=== PATIENT | male | born 1935 | race Caucasian/White ===

== ENCOUNTER → 2016-04-12 | Outpatient (CLI) | payer OTHER | LOC: FIMAGING 09:06 | PROVIDERS: ATTEND Specialist | DX: N20.0 Calculus of kidney (principal) ==

== ENCOUNTER → 2016-08-02 | Outpatient (CLI) | payer OTHER | LOC: BRMIMAGING 13:25 | PROVIDERS: ATTEND Internal Medicine Rheumatology | DX: M81.0 Age-related osteoporosis without current pathological fracture (principal) ==

== ENCOUNTER 2016-08-14 08:49 | Emergency (ER) | payer OTHER ==
[2016-08-14 08:58] VITALS: PULSE 70
--- NOTE | 2016-08-14 09:44 | EDPHY ---
H & P Stated Complaint: r ankle/heel pain post walking golf course HPI/ROS: CHIEF COMPLAINT: Right ankle pain HISTORY OF PRESENT ILLNESS: The patient is an 81 y/o male complaining of right ankle pain worsening since after play golf. 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 He also has a history of gout for which he takes 300mg allopurinol daily. He hasn't had a flare in a long time. On , 3 days ago, he walked 9 holes while playing golf, but did not have any specific injury. He had some ankle soreness after golfing, but was able to walk without issue. Since then his pain has worsened and he developed swelling and redness around his right ankle, laterally. He denies fever, abdominal pain, vomiting, diarrhea, chest pain, shortness of breath, or other recent illness. REVIEW OF SYSTEMS: A ten point review of systems was performed and is negative with the exception of the items mentioned in the HPI. - Personal History Current Tetanus/Diphtheria Vaccine: Yes Tetanus Vaccine Date: 11/22/11 - Medical/Surgical History PMH: 1. Crohn's, in remission 2. Colon CA, colon resection 2012 3. Hypertension 4. Right calcaneal fracture with surgical repair 12 years ago, now has osteoarthritis at that site. 5. Osteoporosis 6. Gout - allopurinol, no recent flares 7. Renal insufficiency 8. Ureterolithiasis Hx Asthma: No Hx Chronic Respiratory Disease: No Hx Diabetes: No Hx Cardiac Disease: No Hx Renal Disease: Yes Hx Cirrhosis: No Hx Alcoholism: No Hx HIV/AIDS: No Hx Splenectomy or Spleen Trauma: No - Social History Smoking Status: Former smoker Additional Social History: at bedside. Retired. PCP: Dr. Stevens. - Physical Exam Exam: General Appearance: Alert. Vital signs reviewed. BP 148/70/ Respiratory: Lungs are clear to auscultation; no wheezes, rales, or rhonchi. Cardiovascular: Regular rate and rhythm; no murmur, rub, or gallop. Gastrointestinal: Abdomen is soft and nontender, no masses or organomegaly, bowel sounds normal. Skin: Warm and dry, no rashes on exposed skin, normal color. Back: Nontender to palpation over the thoracolumbar spine. No CVAT. Extremities: Right ankle is warm, erythematous, tender, and swollen over lateral malleolus, no streaking. FAROM right ankle. Other extremities/joints are unremarkable. Pulses: 2+ bilateral DP. Neurological: Alert and oriented. Moving all four extremities easily and equally. Sensation intact to light touch over RLE. Psychiatric: Normal affect. Constitutional: Initial Vital Signs Temperature (C) 36.5 C 08/14/16 08:55 Heart Rate 70 08/14/16 08:55 Respiratory Rate 16 08/14/16 08:55 Blood Pressure 148/70 H 08/14/16 08:55 O2 Sat (%) 96 08/14/16 08:55 O2 Delivery Mode Room Air Allergies/Adverse Reactions: amoxicillin [Amoxicillin] Allergy (Intermediate, Verified 08/14/16 08:53) Diarrhea Home Medications: Medication Instructions Recorded Allopurinol [Allopurinol 300 MG 300 mg PO DAILY18 07/14/12 (RX)] Aspirin EC [Aspirin EC 81 mg (OTC)] 81 mg PO DAILY 07/14/12 Calcium Acetate [Phoslo (RX)] 2,001 mg PO TIDMEAL 07/14/12 Cyanocobalamin (Vitamin B-12) 1,000 mcg IM Q30D 07/14/12 [Cobal-1000] Enalapril Maleate [Vasotec 10 MG 5 mg PO DAILY 07/14/12 (RX)] Loperamide HCl [Imodium 2 mg (OTC)] 4 mg PO QID 07/14/12 Omeprazole 40 mg PO DAILY18 07/14/12 Potassium Citrate [Urocit-K 10meq 20 meq PO BIDMEAL 07/14/12 (RX)] Psyllium Husk/Ca Carbonate 4 - 5 each PO DAILY 07/14/12 [Metamucil Plus Calcium Capsule] Terazosin HCl [Hytrin] 5 mg PO HS 07/14/12 amLODIPine BESYLATE [Norvasc 5 mg 5 mg PO 07/14/12 (RX)] Potassium Citrate [Urocit-K 10meq 10 meq PO DAILY@1200 07/15/12 (RX)] Bimatoprost 0.01% [Lumigan 0.01% 1 drop EACHEYE HS 11/16/12 (RX)] Vitamin D3 04/09/14 Welchol 08/14/16 predniSONE 20 mg PO DAILY #30 08/14/16 Medical Decision Making - Diagnostics Imaging: Discussed imaging studies w/ geological scout Radiologist, I viewed and interpreted images myself Procedures: Using sterile technique with lidocaine injection for local numbing, right ankle joint aspiration attempted by TAY Spicer and also by myself. No fluid obtained. ED Course/Re-evaluation: Presentation is likely related to gout. Plan for ankle x-ray and arthrocentesis of ankle joint. I have reviewed the ankle xray and the radiologist's report. There is atherosclerosis and a possible luytic process of the calcaneus (possibly related to his previous injury/surgery?). Nothing to explain recent swelling and pain. Ankle aspiration attempted by both TAY Cramer and myself--no fluid obtained. Patient tolerated well. 1200: Consulted with nephrology as patient has history of renal insufficiency-- not a good candidate for NSAIDS to treat gout. [employer] automation qa lead agrees with prednisone in this setting. I discussed this recommendation with the patient and wrote RX for him. We discussed prednisone taper once symptoms are controlled. He understands he should follow up with Dr. Granger in a few days. Reviewed danger signs that should prompt re-evaluation. Given history and exam, gout or pseudogout most likely diagnoses. Single joint is involved. No history of ankylosing spondylitis or RA. There is no known trauma and xray does not show signs of trauma--no fracture, dislocation, STS swelling. I doubt joint infection but can not entirely rule this out without fluid analysis. Departure - Departure Disposition: Home, Routine, Self-Care Clinical Impression: Gout Qualifiers: Gout site: ankle Gout etiology: idiopathic Chronicity: acute Laterality: right Qualified Code(s): M10.071 - Idiopathic gout, right ankle and foot Condition: Good Instructions: Gout (ED) Additional Instructions: Take 20mg prednisone twice daily until your flare has improved. Then taper down by dropping your daily dose by 10mg every 2 days until you get to 0mg. Follow up with Dr. Granger this week. Return to the ED for any worsening of condition. Referrals: Raymundo Stevens MD [Primary Care Provider] - As per Instructions Evin Granger MD [Medical Doctor] - As per Instructions Prescriptions: predniSONE 20 mg PO DAILY #30 Report Scribed for: Irene Odonnell Report Scribed by: Rocio Capellan of Report: 08/14/16 Time of Report: 10:07 Physician Review and Approval Statement: 08/14/16 09:44 Portions of this note were transcribed by the medical affairs specialist. I, Dr. Irene Odonnell, personally performed the history, physical exam, and medical decision- making; and confirmed the accuracy of the information in the transcribed note.
[2016-08-14 12:31] VITALS: BP 130/74; RESP 14; TEMP 98.4; O2SAT 94
== END 2016-08-14 12:30 | disposition home or self-care (01) ==
PROC: 0M9 Bursae and Ligaments, Drainage (ICD-10-PCS; principal; 2016-08-14)
DX: M10.071 Idiopathic gout, right ankle and foot (principal); I10 Essential (primary) hypertension; Z79.82 Long term (current) use of aspirin; Z85.038 Personal history of other malignant neoplasm of large intestine; Z87.891 Personal history of nicotine dependence

== ENCOUNTER → 2016-11-04 | Outpatient (CLI) | payer OTHER | LOC: FIMAGING 08:21 | PROVIDERS: ATTEND Internal Medicine Gastroenterology | DX: K50.00 Crohn's disease of small intestine without complications (principal); I25.10 Atherosclerotic heart disease of native coronary artery without angina pectoris ==

== ENCOUNTER → 2017-04-22 | Outpatient (CLI) | payer OTHER | LOC: FIMAGING 10:31 | PROVIDERS: ATTEND Specialist | DX: N20.0 Calculus of kidney (principal) ==

== ENCOUNTER → 2017-11-22 | Outpatient (CLI) | payer OTHER | LOC: FIMAGING 10:14 | PROVIDERS: ATTEND Specialist | DX: N20.0 Calculus of kidney (principal) ==